=== PATIENT | female | born 1975 ===

== ENCOUNTER 2020-02-13 07:50 | Outpatient (CLI) | payer OTHER, SELFPAY ==
[2020-02-13 08:29] LABS: Basophils Percent Auto 0.7 % (0.2-1.2); Hematocrit 34.9 % (37.0-47.0); Immature Granulocyte Absolute 0.01 K/mm3 (0.00-0.031); Immature Granulocyte Percent A 0.2 % (0-0.5); Lymphocytes Absolute Auto 1.36 K/mm3 (0.9-3.2); Lymphocytes Percent Auto 33.2 % (18.3-44.2); Mean Corpuscular HGB Conc 31.5 g/dl (32-36); Mean Corpuscular Hemoglobin 28.1 pg (26-34); Mean Corpuscular Volume 89.3 fl (80-100); Mean Platelet Volume 9.7 fl (7.4-10.4); Monocytes Absolute Auto 0.5 K/mm3 (0.1-0.6); Monocytes Percent Auto 12.4 % (2.6-8.5); Neutrophils Absolute Auto 2.2 K/mm3 (1.3-6.7); Neutrophils Percent Auto 52.5 % (45.5-73.1); Platelet Count Result 379 k/mm3 (150-375); Red Blood Count 3.91 M/mm3 (4.2-5.4); Red Cell Distribution Width 15.5 % (11.5-14.5); White Blood Count 4.1 K/mm3 (4.5-10.0)
[2020-02-13 08:45] LABS: Alanine Aminotransferase 14 U/L (4-35); Albumin Level 4.3 g/dL (3.5-5.1); Alkaline Phosphatase 76 U/L (38-126); Anion Gap 7 mmol/L (8-16); Aspartate Amino Transferase 23 U/L (14-36); Bilirubin,Total 0.3 mg/dL (0.2-1.3); Blood Urea Nitrogen 13 mg/dL (7-17); Calcium 8.9 mg/dL (8.4-10.2); Carbon Dioxide 27 mmol/L (22-30); Chloride 104 mmol/L (98-107); Cholesterol 180 mg/dL (0-200); Estimated Glomerular Filt Rate > 60; Glucose 103 mg/dL (65-105); HDL Direct 43 mg/dL; Potassium 4.3 mmol/L (3.4-5.0); Sodium 138 mmol/L (137-145); Triglycerides 48 mg/dL (<150)
[2020-02-13 08:56] LABS: LDL Cholesterol Direct 109 mg/dL
[2020-02-13 09:13] LABS: Thyroid Stimulating Hormone 0.883 uIU/mL (0.465-4.680)
[2020-02-13 09:48] LABS: Free T4 Free Thyroxine 0.99 ng/mL (0.78-2.19); Vitamin D 25 Hydroxy 35.1 ng/mL
== END 2020-02-13 07:51 | disposition home or self-care (01) ==
LOC: ANHLAB 08:00
DX: Z13.228 Encounter for screening for other metabolic disorders (principal); Z01.419 Encounter for gynecological examination (general) (routine) without abnormal findings; Z13.220 Encounter for screening for lipoid disorders; E55.9 Vitamin D deficiency, unspecified; Z13.0 Encounter for screening for diseases of the blood and blood-forming organs and certain disorders involving the immune mechanism
CPT/HCPCS: 36415; 80053; 80061; 82306; 84439; 84443; 85025